=== PATIENT | male | born 1965 | race Two or more races ===

== ENCOUNTER 2018-07-21 16:55 | Emergency (ER) | payer MEDICAID ==
[~2018-07-21] VITALS: Ht 160 cm; Wt 53.1 kg
[2018-07-21] MEDS ORDERED: NKM (17:12)
[2018-07-21 17:15] VITALS: BP 116/78
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
[2018-07-21] MEDS ORDERED: BACITRACIN-P28.35 GM TP (17:38)
[2018-07-21] MEDS ORDERED: TYLENOL EXTRA500 MG ORAL (17:38)
[2018-07-21] MEDS ORDERED: ROBAXIN-750750 MG PO (17:38)
[2018-07-21 18:00] VITALS: BP 118/75
== END 2018-07-21 18:00 | disposition home or self-care (01) ==
LOC: EMR 18:00
DX: S39.012A Strain of muscle, fascia and tendon of lower back, initial encounter (principal); S29.012A Strain of muscle and tendon of back wall of thorax, initial encounter; S01.81XA Laceration without foreign body of other part of head, initial encounter; V43.52XA Car driver injured in collision with other type car in traffic accident, initial encounter; Y92.410 Unspecified street and highway as the place of occurrence of the external cause
CPT/HCPCS: 99283